=== PATIENT | female | born 1935 | race Caucasian/White ===

== ENCOUNTER 2016-09-22 15:21 | Inpatient (IN) | payer MEDICARE, OTHER ==
[~2016-09-22] VITALS: Ht 160 cm; Wt 60.3 kg
--- NOTE | 2016-09-25 08:47 | CO ---
ADMIT: 09/22/2016 RM/LOC: 315 [facility] MR#: [id number] [address] [address] LUC CHOI [address] [place] [address] Consultation SEX: F AGE: 81 : 1935 DATE OF CONSULTATION: 09/22/2016 ATTENDING PHYSICIAN: Jose Guadalupe Coley CONSULTING PHYSICIAN: Karely Rubalcava APRN TIME IN: 1550 hours. TIME OUT: 1625 hours. REASON FOR CONSULTATION: Supportive care consultation was requested by Dr. Coley for discussion of goals for care and code status. HISTORY OF PRESENT ILLNESS: Luc is a delightful 81-year-old female with a history of severe COPD, for which she wears chronic oxygen therapy at home. Apparently, she had not been feeling well over the past week or so and was evaluated by Dr. Coley today and found to be in acute exacerbation prompting her admission to the hospital. She has designated that she wishes to be a do not resuscitate/do not intubate status. Due to her complexities, supportive care consultation was requested to discuss goals for care. Symptomatically, the patient is reporting significant dyspnea. She is weak and debilitated. She denies pain. In terms of advanced directive, the patient has not completed any advanced directive paperwork at this time. They were actually in the process of getting paperwork to do this. However, she became too sick today to get this done. Her next of kin medical decision maker would be her , Jose Choi whose phone number is [phone]. It is of note that it sounds like [facility], therefore, she does have multiple children who are involved with her care. We do have contact information if her son, Carlos Bond whose phone number is [phone]. PAST MEDICAL HISTORY: COPD, hypertension, hypothyroidism, history of small- bowel obstruction. SOCIAL HISTORY: The patient is . She lives with her . She has a past smoker. She does not use alcohol or illicit drugs. FAMILY HISTORY: Reviewed and noncontributory. ALLERGIES: THE PATIENT IS NOT SURE OF HER ALLERGIES AT THIS TIME. WE ARE GETTING THESE CLARIFIED. CURRENT MEDICATIONS: Please see the patient's MAR for specific routes and dosages. Her current medications are as follows. 1. Lovenox. 2. DuoNeb. 3. Apresoline. ADMIT: 09/22/2016 RM/LOC: 315 [facility] MR#: [id number] [address] [address] [facility]INAL KIRIT [address] [place] [address] Consultation SEX: F AGE: 81 : 1935 4. Tylenol. 5. Nitrostat. 6. Levaquin. 7. DuoNeb. 8. Solu-Medrol. 9. Zofran. 10.Ativan. 11.Morphine. FUNCTIONAL REVIEW: Prior to her hospital stay, she was at home independent. She could ambulate, but it was kind of limited given her respiratory status. Her palliative performance scale prior to admission was around 70%. Currently, she is requiring mostly assistance. She is in bed. She is tired. Her current palliative performance scale is 30% to 40%. REVIEW OF SYSTEMS: A 10-point review of systems was completed and other than those pertinent positives and negatives mentioned in the HPI, it is negative. PHYSICAL EXAMINATION: GENERAL: The patient is examined in the bed. She is in moderate distress secondary to her respiratory status. VITAL SIGNS: Pulse 77, respirations 22, blood pressure 215/79, oxygen 99% on BiPAP therapy currently. HEENT: Head is normocephalic. Oral mucosa pink and moist with fair dentition. NECK: Supple. RESPIRATORY: Respirations are labored. LUNGS: Diminished throughout. She is not moving a whole lot of air. CARDIOVASCULAR: Rate and rhythm regular without murmurs, rubs, or gallops. Trace bilateral lower extremity edema noted. GASTROINTESTINAL: Soft, nontender. Bowel sounds are positive. MUSCULOSKELETAL: Generalized weakness. No obvious joint deformities. INTEGUMENTARY: Skin turgor is fair. NEUROLOGIC: Fatigued, but oriented x3. She will follow commands. PSYCHIATRIC: Calm. Cooperative. No agitation or delirium noted. IMPRESSION: 1. Physical debility. 2. Dyspnea. 3. Fatigue. 4. Malaise. 5. Acute respiratory failure. 6. Chronic obstructive pulmonary disease with acute exacerbation. 7. Palliative care. 8. The patient is a do not resuscitate/do not intubate. PLAN: 1. I was able to meet with the patient and her daughter, Fannie at the bedside. The patient is in moderate respiratory distress and actually ADMIT: 09/22/2016 RM/LOC: 315 [facility] MR#: [id number] [address] [place] [id number] LUC CHOI [address] [place] [address] Consultation SEX: F AGE: 81 : 1935 getting ready to go on BiPAP therapy. She is alert and appropriate and able to make medical decisions. She is very clear that she wishes to be a do not resuscitate/do not intubate status. She understands that if she worsens to the point where she needs intubation that she would not be intubated and that she would likely . She understands this and states that if she gets that bad she would want to be kept comfortable and be allowed to pass away naturally. Her daughter supports her decision regarding this. In terms of BiPAP, she is not too enthused about having newer BiPAP therapy but states that she will try it. I did discuss with the patient's daughter that should she decline despite our interventions with the knowledge knowing that she does not want to go on a ventilator that they would likely be looking at more of a comfort approach to care and she verbalizes understanding of this. They will take direction from Dr. Coley in the time ahead regarding the patient's status. 2. I did give a copy of the POLST form to the family to review in the days ahead. They also have documents with a printed off from home for advance directives. Pending her status on Sunday I am happy to help with the completion of these. I did place a call to Dr. Coley with an update regarding my consult. We would like to thank Dr. Coley for the invitation to participate in this patient's care. Total consultation time was 35 minutes from 1550 hours to 1625 hours with 20 minutes from 1555 to 1615 spent [id number] with the patient family discussing goals for care and providing counseling and support. Karely Rubalcava APRN/ graeme JOB #: [id number] CC: Jose Guadalupe Coley, Attending Physician Jose Guadalupe Coley, Family Physician
--- NOTE | 2016-09-27 10:08 | CO ---
ADMIT: 09/22/2016 RM/LOC: 315 [facility] MR#: [id number] [address] [address] LUC CHOI [address] [place] [address] Consultation SEX: F AGE: 81 : 1935 DATE OF CONSULTATION: 09/23/2016 ATTENDING PHYSICIAN: Jose Guadalupe Coley CONSULTING PHYSICIAN: Karel Marroquin MD REASON FOR CONSULTATION: Hyponatremia. HISTORY OF PRESENT ILLNESS: The patient is a pleasant 81-year-old female, who has a history of advanced COPD for which she wears supplemental oxygen at all times. She has been having worsening dyspnea for about the last one week or so. She was evaluated by yourself in the Outpatient Clinic three days ago, but she continued to get worsen, was then eventually vented yesterday with acute on chronic respiratory failure. She was on BiPAP yesterday and has been receiving antibiotics as well as steroids. Her breathing has improved and she is currently on 2 L nasal cannula. She continues to have a cough. She denies any fevers, chills, or rigors. Does note that she was having an upper respiratory tract infection with a runny nose about a week ago. Her appetite has been poor and she denies any increased fluid intake other than her usual. She denies any cardiac complaints. Denies any urinary complaints. She notes that she has been dizzy and somewhat slower than usual. Otherwise, denies any nausea or vomiting. REVIEW OF SYSTEMS: A complete review of systems is negative in detail except as mentioned in history of present illness above. PAST MEDICAL HISTORY: 1. COPD. 2. Hypertension. 3. Hypothyroidism. SOCIAL HISTORY: She is , she lives with her . She is a previous smoker, quit smoking about 14 years ago. No ongoing tobacco, alcohol, or recreational drug use. ALLERGIES: SULFA AND OXYCODONE. MEDICATIONS: Reviewed in the chart. FAMILY HISTORY: No family history of hyponatremia or chronic kidney disease. Cancer runs in her family. PHYSICAL EXAMINATION: VITAL SIGNS: Temperature 97.5 Fahrenheit, pulse 105, blood pressure 167/75. GENERAL: She is uncomfortable, and in no acute distress. HEENT: Head is nontraumatic and normocephalic. Extraocular movements are intact. No conjunctival pallor. Dry mucosa. CHEST: With expiratory wheezes. CVS: Regular rhythm. S1, S2 heard. No rubs, murmurs, or gallops. ADMIT: 09/22/2016 RM/LOC: 315 [facility] MR#: [id number] [address] [address] [place] KIRIT [address] [place] [address] Consultation SEX: F AGE: 81 : 1935 ABDOMEN: Soft. Nontender. EXTREMITIES: No edema. NEUROLOGIC: She is alert and oriented. She is able to move all her extremities. PSYCHIATRIC: Affect and memory within normal limits. LABORATORY AND X-RAY DATA: Reviewed. BMP with sodium 117, potassium 4.6, CO2 of 28, creatinine 0.6. Hemoglobin was 12.9. Her urine osmolality was 633 with a spot urine sodium of 135. Serum osmolality was 252. Chest x-ray without any acute cardiopulmonary process. CT chest showed emphysema. ASSESSMENT AND PLAN: Hyponatremia - this is a true hyponatremia based on her serum osmolality. This is presumed chronic in duration i.e. greater than 48 hours. She may be somewhat symptomatic from her hyponatremia as she appears to be slower than usual. 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 She has dropped her serum sodium despite some normal saline, and I will place her on fluid restriction of less than 1 L over 24 hours. I will start hypertonic saline at 20 mL/h. Our target serum sodium would be around 123 mmol/L over the next 24 hours. Thank you for this consultation. Please do not hesitate to contact me with any questions. Karel Marroquin MD/ graeme JOB #: [id number] CC: Jose Guadalupe Coley, Attending Physician Jose Guadalupe Coley, Family Physician
[2016-09-28] MEDS ORDERED: EMERGEN-C 1,01000 MG PO (13:55)
[2016-09-28] MEDS ORDERED: MUCINEX600 MG PO (13:55)
[2016-09-28] MEDS ORDERED: DUONEB DPS3 ML IH (13:58)
[2016-09-28] MEDS ORDERED: LEVOTHYROXINE75 MCG PO (13:58)
[2016-09-28] MEDS ORDERED: ALPHAGAN-P5 ML OD (13:59)
[2016-09-28] MEDS ORDERED: NORVASC DPS10 MG PO (14:00)
[2016-09-28] MEDS ORDERED: DELTASONE DPS20 MG PO (14:00)
[2016-09-28] MEDS ORDERED: SYMBICORT160 MCG/6 IH (14:01)
[2016-09-28] MEDS ORDERED: SEROQUEL25 MG PO (14:01)
[2016-09-28] MEDS ORDERED: SPIRIVA18 MCG IH (14:01)
--- NOTE | 2016-10-10 06:55 | HP ---
ADMIT: 09/22/2016 RM/LOC: 315 [facility] MR#: [id number] [address] [address] LUC CHOI [address] [place] [address] History and Physical SEX: F AGE: 81 : 1935 DATE OF SERVICE: 09/22/2016 CHIEF COMPLAINT: Increasing shortness of breath. HISTORY OF PRESENT ILLNESS: Luc is a very pleasant 81-year-old female, history of severe end-stage COPD/emphysema, on chronic oxygen therapy 2 L at home, presents with her son to clinic today with the above complaints. We actually saw her yesterday and she was not quite as bad. She was given a shot of steroids, started on oral antibiotics and breathing treatments. Unfortunately over the course of the last 24 hours, her symptoms have worsened. She is breathing much harder. She was unable to sleep last night, she was coughing. They are here today now for possible admission to hospital. She denies any fevers. She confirms to me again that she does not want to be intubated. No other complaints. She just feels that she is very fatigued. PAST MEDICAL HISTORY: 1. Chronic obstructive pulmonary disease. 2. Chronic respiratory failure, on chronic oxygen 2-3 L. 3. History of cataracts. 4. History of right subacromial bursitis. 5. Atherosclerosis of the aorta. 6. Chronic anemia. 7. Corneal edema on the right. 8. Fracture of the scapula in the past on the right side. 9. Glaucoma. 10.Hyperlipidemia. 11.Hypertension. 12.Hypothyroidism. 13.Hypoxemia. 14.Intervertebral disk degeneration of the back. 15.Osteoarthritis, generalized. 16.Osteopenia. 17.Prediabetes. 18.History of retinal vein occlusion on the right. 19.Spinal stenosis. 20.Urinary incontinence. MEDICATIONS: 1. Albuterol sulfate nebulizer four times daily as needed. 2. Brimonidine tartrate 0.2% ophthalmic solution daily. 3. Ipratropium bromide 0.2% inhaled q.4 hours. 4. Levaquin 500 mg daily. 5. Levothyroxine 75 mcg daily. 6. Lisinopril 10 mg daily. 7. Prednisone burst and taper. 8. Triamcinolone cream p.r.n. for rash. ALLERGIES: SULFA DRUGS AND OXYCODONE. ADMIT: 09/22/2016 RM/LOC: 315 [facility] MR#: [id number] [address] [address] LUC CHOI [address] [place] [address] History and Physical SEX: F AGE: 81 : 1935 SOCIAL HISTORY: The patient lives at home with her spouse. Has multiple children who are visiting from out of state. No alcohol use. Previous extensive smoking history, no longer smokes. No other drug use. FAMILY HISTORY: Noncontributory. REVIEW OF SYSTEMS: A 10-point review of systems obtained, per HPI, otherwise negative. PHYSICAL EXAMINATION: VITAL SIGNS: Blood pressure 144/96, pulse 88, respirations 44, oxygen 93% on 3 L. GENERAL: Alert and oriented x3. Does appear to be in some moderate distress, breathing quite heavily and puffing. Retractions. She is able to complete a few words, but not full sentences without having to take a breath. HEENT: Pupils are equal, round, and reactive. Extraocular muscles intact. Throat clear. Trachea midline. HEART: Tachycardic. LUNGS: Decreased breath sounds bilaterally with scattered wheezes. ABDOMEN: Soft, nontender, and nondistended. No organomegaly. EXTREMITIES: Without any significant edema. NEUROLOGIC: Cranial nerves II through XII grossly intact. No focal deficits. SKIN: Normal. LABORATORY DATA: Currently pending. ASSESSMENT: This is an 81-year-old female with: 1. Acute on chronic respiratory failure with hypoxia. 2. Chronic obstructive pulmonary disease exacerbation. 3. Hypoxia. 4. Hypertension. 5. Hyperlipidemia. 6. Hypothyroidism. 7. Generalized osteoarthritis. 8. Prediabetes. PLAN: We will admit the patient to hospital. Pulmonary workup including x- rays, evaluate for pneumonia. We will get general labs. Put the patient on aggressive pulmonary toilet, steroids, and IV antibiotics to cover for possible underlying pneumonia. Her chest x-rays in clinic are normal, no signs of pneumonia. Likely this is viral. Discussed at length with the ADMIT: 09/22/2016 RM/LOC: 315 [facility] MR#: [id number] [address] [place] [address] LUC CHOI [address] [place] [address] History and Physical SEX: F AGE: 81 : 1935 patient her desire for further intervention if needed, and she again denies and refuses any intubation. She was agreeable to trying BiPAP, but does say that this makes her fairly claustrophobic. She is quite anxious and feels like she would benefit from something for that. We will put her in the ICU for BiPAP therapy, check ABGs and see how bad she is, but I am worried that she could fatigue more and require more support, which she is not in favor of at this point. We will have Supportive Care team see the patient as well. Follow up appropriately with any of the labs. Lovenox for DVT prophylaxis. 35 minutes of time was spent in overall care of the patient with 25 minutes that being [id number] interaction. The patient was in agreement with the plan. Jose Guadalupe Coley MD/ graeme JOB #: [id number] CC: Jose Guadalupe Coley, Attending Physician Jose Guadalupe Coley, Family Physician
--- NOTE | 2016-10-10 06:55 | DS ---
ADMIT: 09/22/2016 RM/LOC: 423 [facility] MR#: [id number] [address] [address] LUC CHOI [address] [place] [address] General Discharge Summary SEX: F AGE: 81 : 1935 ADMISSION DATE: 09/22/2016 DISCHARGE DATE: 09/27/2016 FINAL DIAGNOSES: 1. Acute on chronic respiratory failure with hypoxia. 2. Human metapneumovirus infection. 3. Chronic obstructive pulmonary disease exacerbation. 4. Chronic respiratory failure with chronic hypoxia, on oxygen. 5. Hypernatremia, secondary to syndrome of inappropriate antidiuretic hormone, new onset. 6. Hypertension. 7. Debility of age. 8. Hypothyroidism. 9. Chronic fatigue. 10.Chronic malaise. 11.Do not resuscitate/do not intubate. CONSULTATIONS: Karel Marroquin MD with Nephrology. LABS AND IMAGING: Please refer to hospital record. Briefly, sodium on discharge was 139. Positive human metapneumovirus. Head CT negative. Chest CT with emphysema changes, no infiltrates or pulmonary edema. REASON FOR ADMISSION: Please refer to dictated H and P. Briefly, very pleasant 81-year-old female with known end-stage COPD on chronic oxygen therapy, presented to clinic in acute respiratory distress. She was admitted to the hospital for further workup and management of this. HOSPITAL COURSE: The patient admitted to the ICU. Upon admission, the patient indicated she does not want to be intubated if she would worsen despite fatigue. She was agreeable to BiPAP. She was started on BiPAP, and other respiratory supports including DuoNeb, IV steroids, and IV antibiotics. Over the first 24 to 48 hours, the patient was much more short of breath. RVP came back positive for human metapneumovirus. This gradually improved back to her baseline when she was on her 2 L of oxygen. She was still somewhat short of breath, but her lung examination including the wheezes, rhonchi, and her cough generally improved during her hospital stay. Upon admission, she was also noted to have a sodium of 119. She was given some normal saline to help correct this. Despite this, her sodium continued to drop. 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 She was started on hypertonic saline. Dr. Marroquin was consulted and agreed with SIADH diagnosis. The patient then transitioned to salt tabs as well as on a fluid restriction. Her sodium gradually improved over the course of the day and was normalized at 139 on day of discharge. On day of discharge, the patient was quite weak, but is doing much better from a respiratory standpoint. She did not want to go to jail; therefore, home health care was set up for her. She is essentially dependent on many of her cares, essentially wheelchair bound as she is not able to move more than a few steps on her own. Her is at home, who is going to help care for as well as many of her children are around ADMIT: 09/22/2016 RM/LOC: 423 [facility] MR#: [id number] [address] [address] LUC CHOI [address] [place] [address] General Discharge Summary SEX: F AGE: 81 : 1935 to help. We will have followup BMPs on Sunday and next week to monitor her sodiums. Her lisinopril during hospitalization was stopped as well as this can contribute possibly SIADH. Given her elevated blood pressures, she was started on Norvasc instead. There were no other major events during hospitalization. On day of discharge, the patient was much improved and ready to go home. DISCHARGE MEDICATIONS: Please see hospital record. Briefly, lisinopril was stopped. Norvasc 10 mg was started. Also, Symbicort 160 two puffs b.i.d. was started. Spiriva 1 capsule inhaled daily was started. Prednisone burst and taper was given for discharge. DISCHARGE INSTRUCTIONS: The patient was instructed to take all medications and inhalers as prescribed. Discussed if she would worsen to return to clinic for further evaluation. I am off for a week, so she will see me in 2 weeks. If she needs to see one of my partners, she has been instructed to do that if things would worsen for her. Discharge activities took approximately 35 minutes. Jose Guadalupe Coley MD/ graeme JOB #: [id number] CC: Jose Guadalupe Coley MD, Attending Physician Jose Guadalupe Coley MD, Family Physician
== END 2016-09-27 11:31 | disposition home health service (06) | DRG 189 ==
LOC: 3ICU 15:21 → 4PCU 09-25 11:08
PROVIDERS: ADMIT Family Medicine
PROC: 02HV33Z Insertion of Infusion Device into Superior Vena Cava, Percutaneous Approach (ICD-10-PCS; principal; 2016-09-23)
DX: J96.21 Acute and chronic respiratory failure with hypoxia (principal); J44.1 Chronic obstructive pulmonary disease with (acute) exacerbation; Z99.81 Dependence on supplemental oxygen; E22.2 Syndrome of inappropriate secretion of antidiuretic hormone; B97.81 Human metapneumovirus as the cause of diseases classified elsewhere; I70.0 Atherosclerosis of aorta; E83.42 Hypomagnesemia; D64.9 Anemia, unspecified; H40.9 Unspecified glaucoma; E78.5 Hyperlipidemia, unspecified; I10 Essential (primary) hypertension; E03.9 Hypothyroidism, unspecified; M15.9 Polyosteoarthritis, unspecified; M85.80 Other specified disorders of bone density and structure, unspecified site; R73.03 Prediabetes; M48.00 Spinal stenosis, site unspecified; R32 Unspecified urinary incontinence; Z87.891 Personal history of nicotine dependence; Z66 Do not resuscitate